=== PATIENT | female | born 1990 | race Caucasian/White ===

== ENCOUNTER 2017-06-01 18:41 | Emergency (ER) | payer SELFPAY ==
[2017-06-01] MEDS ORDERED: ONDANSETRON HCL/PF 2 MG/ML VIAL IV ONE (19:32)
[2017-06-01] MEDS ORDERED: NORMAL SALINE 1,000 ML IV ONE ×2 (19:32→20:19)
--- NOTE | 2017-06-01 19:33 | ERNOTE ---
<Freddy Rodriguez - Last Filed: 06/01/17 19:43> Headache ER HPI - Narrative Date of Service: 06/01/17 - General Time Seen by Provider: 06/01/17 19:22 Source: patient Exam Limitations: no limitations - Immun/Allergies/Home Medications Immunizations: IMMUNIZATION HX Immunizations Up to Date Yes History of Influenza Vaccine No Hx Pneumococcal Vaccination No Allergies/Adverse Reactions: Allergies tramadol Allergy (Intermediate, Verified 06/22/15 19:34) Other Causes Seizures with keppra Home Medications: HOME MEDICATIONS Ibuprofen [Motrin] 800 mg PO Q6H PRN #0 tablet 09/06/16 [Last Taken Unknown] levETIRAcetam [Keppra] 500 mg PO BID 06/01/17 [Last Taken Unknown] - History of Present Illness Narrative: 26-year-old white female presents due to feelings of malaise and exhaustion. Patient states she works 2 jobs that have been quite difficult recently. Today she worked at [employer] and she states a temperature where she works was 105. She feels like she may have gotten overheated. She has feelings of nausea and generalized malaise. She is scheduled to work [employer] at her second job. She denies . Review of Systems - Review of Systems Constitutional: Present: See HPI, diaphoresis, fatigue, malaise. Absent: fever , chills, weight loss EYE: Present: no symptoms reported ENT: Present: no symptoms reported Respiratory: Present: no symptoms reported Cardiology: Present: no symptoms reported Gastrointestinal/Abdominal: Present: nausea. Absent: vomiting, diarrhea, abdominal pain, eating less, drinking less Genitourinary: Present: no symptoms reported Neurological: Present: headache, other Hematologic/Lymphatic: Present: no symptoms reported All Other Systems: All systems neg except as marked - Patient's Past Medical History Patient History - Medical: Anxiety, Depression, Seizures Patient History - Cardiac/Respiratory: Asthma Patient History - Cancer: No Hx of Cancer Patient History - Surgical Procedures: Other Patient History - Other: None LMP (females 10-50): last week - Social History Living Situations: home Psych History: Hx of Anxiety, Hx of Depression Smoking Status: Current some day smoker Patient requests Smoking Cessation Consult: No Initiate information on Smoking Cessation: No Alcohol Use: heavy Drug Use: none - Immunizations Immunizations Up to Date: Yes Hx Pneumococcal Vaccination: No History of Influenza Vaccine: No Physical Exam - Physical Exam General Appearance: Present: wd/wn, alert, no apparent distress Head Exam: Present: normal inspection, no evidence of injury Eye Exam: Normal inspection: bilateral Ears, Nose, Throat: Present: normal ENT inspection Neck: Present: normal inspection Respiratory: Present: no respiratory distress, normal breath sounds, no accessory muscle use, chest nontender, lungs clear Cardiovascular/Chest: Present: regular rate, rhythm, no murmur, normal peripheral pulses Gastrointestinal/Abdominal: Present: normal bowel sounds, nontender, nondistended, soft Extremity Exam: Present: normal inspection Neurological Exam: Present: alert, oriented, no motor/sensory deficits Skin Exam: Present: normal color, warm/dry ED Progress - Vital Signs Patient's Vital Signs:: I have reviewed the patient's vital signs. Vital Signs: Vital Signs 06/01/17 06/01/17 18:53 19:10 Temperature 36.1 C L 37.1 C Pulse Rate 88 84 Respiratory 16 Rate Blood Pressure 123/86 115/66 O2 Sat by Pulse 100 100 Oximetry - Progress/Reassessment Chief Complaint: Headache Progress:: Unchanged Plan - Plan Plan: I have ordered labs, IV fluids and Zofran for patient. Her care will be transferred at shift change to the oncoming physician . I anticipate she will improve and be appropriate for discharge. Departure Clinical Impression: Headache Qualifiers: Headache type: unspecified Headache chronicity pattern: acute headache Intractability: not intractable Qualified Code(s): R51 - Headache Heat stress disorder Qualifiers: Encounter type: initial encounter Qualified Code(s): T67.8XXA - Other effects of heat and light, initial encounter - Departure Disposition: Home self-care Condition: Stable Instructions: Heat Exhaustion Information Additional Instructions: As we discussed, it is important that you remain adequately hydrated. Drink at least 6 cups (8 ounces) of water each day. Take frequent breaks in the heat. She should continue to feel better. Re-hydrating U will typically take care of the headaches like you are having. He feels better now but it is important to continue drinking fluids throughout the evening. For mild to moderate pain you can use Motrin or Naprosyn. When your insurance kicks in talking her family doctor about getting a referral to physical therapy. I do not believe you are candidate for cement in your spine due to her age and lack of hard neurological findings. Only her family doctor and consultation with a back specialist can make this definitive decision however. Return for new or worrisome symptoms <Pipe Rosenthal - Last Filed: 06/01/17 21:01> Headache ER HPI - Immun/Allergies/Home Medications Immunizations: IMMUNIZATION HX Immunizations Up to Date Yes History of Influenza Vaccine No Hx Pneumococcal Vaccination No ED Progress - Results and Orders Patient's Lab Results:: I have reviewed the patient's lab results. - Vital Signs Vital Signs: Vital Signs 06/01/17 06/01/17 06/01/17 18:53 19:10 19:49 Temperature 36.1 C L 37.1 C Pulse Rate 88 84 84 Respiratory 16 Rate Blood Pressure 123/86 115/66 121/61 O2 Sat by Pulse 100 100 98 Oximetry - Progress/Reassessment Progress:: Improved - she says headache is better Progress Note-Subjective: 06/01/17 20:58 I've discussed with the patient her chronic back pain. She had a fracture in her thoracic spine 6 months ago after a seizure. She wants a referral to physical therapy. She does not have insurance for another 6 weeks. I explained that she can go to physical therapy but be given a referral was not going to have any bearing unless she does have insurance. I instructed her to use ibuprofen or Naprosyn to help with inflammation and pain, and do physical therapy. Patient is received 1 L of normal saline. She says that she feels much better. - Transfer of Care Receiving Physician: Pipe Rosenthal Expected Disposition: Discharge Additional Notes: I received the patient in transfer from during the day. Pending the labs and resolution of headache
[2017-06-01 19:37] LABS: Urine Appearance Clear; Urine Bilirubin Negative (NEGATIVE); Urine Blood Negative /ul (NEGATIVE); Urine Color Dark Yellow; Urine Ketone 5 mg/dL (NEGATIVE); Urine Nitrite Negative (NEGATIVE); Urine Protein Negative (NEGATIVE); Urine Specific Gravity 1.015 SP.GR. (1.005-1.010); Urine Urobilinogen Normal (NORMAL); Urine pH 6.5 pH (5.0-7.0)
[2017-06-01 19:38] LABS: Urine Bacteria None Seen; Urine RBC None Seen /hpf (0-5); Urine WBC 0-5 /hpf (0-5)
[2017-06-01 19:45] LABS: Hematocrit 36.8 % (37.0-47.0); Hemoglobin 12.3 gm/dL (12.5-16.0); Mean Cell Volume 90.2 fl (78-100); Mean Corpuscular Hemoglobin 30.1 pg (27-31); Mean Corpuscular Hgb Conc 33.4 g/dl (32-36); Mean Platelet Volume 10.9 fl (6.0-9.5); Neutrophil % 55.2 % (42-75.0); Platelet Count 224 K/mm3 (150-450); Red Blood Count 4.08 M/mm3 (4.2-5.4); White Blood Count 5.4 K/mm3 (4.0-10.5)
[2017-06-01] MEDS ORDERED: ONDANSETRON HCL/PF 2 MG/ML VIAL ONE (19:53)
[2017-06-01 19:57] LABS: Albumin * 3.6 gm/dl (3.4-5.0); Anion Gap 12.8 mmol/L (6.8-13.8); Bilirubin, Total 0.5 mg/dL (0.0-1.1); Ca. Corrected For Albumin 8.5 mg/dL (8.4-10.2); Calcium * 8.5 mg/dL (7.9-10.9); Carbon Dioxide 26.8 mmol/L (24-32.6); Potassium 3.6 mmol/L (3.4-4.6); Total Protein 6.5 gm/dL (6.2-8.2)
[2017-06-01] MEDS ORDERED: ACETAMINOPHEN 500 MG TABLET PO ONE (20:18)
[2017-06-01 21:11] VITALS: BP 116/73
== END 2017-06-01 21:16 | disposition home or self-care (01) ==
LOC: ER 18:41
DX: R51 Headache (principal); T67.8XXA Other effects of heat and light, initial encounter
CPT/HCPCS: 36415; 80053; 81001; 82550; 84703; 85025; 96374; 99284; J2405

== ENCOUNTER 2019-03-06 07:13 | Inpatient (IN) ==
[2019-03-06] MEDS ORDERED: PENICILLIN G POTASSIUM 5 MILLIONUNT in DEXTROSE 5 % IN WATER 100 ML IV ONE ×2 (07:27)
[2019-03-06 07:43] LABS: Hematocrit 38.5 % (37.0-47.0); Hemoglobin 12.8 gm/dL (12.5-16.0); Mean Cell Volume 90.6 fl (78-100); Mean Corpuscular Hemoglobin 30.1 pg (27-31); Mean Corpuscular Hgb Conc 33.2 g/dl (32-36); Neutrophil # 9.7 K/mm3 (1.3-6.0); Neutrophil % 76.5 % (42-75.0); Platelet Count 313 K/mm3 (150-450); Red Blood Count 4.25 M/mm3 (4.2-5.4); Red Cell Distribution Width 13.3 % (11.5-14.0); White Blood Count 12.7 K/mm3 (4.0-10.5)
[2019-03-06] MEDS ORDERED: OXYTOCIN 20 UNITS in RINGER'S SOLUTION,LACTATED 1,000 ML IV ONE (07:48)
[2019-03-06] MEDS ORDERED: ceFAZolin SODIUM/DEXTROSE,ISO 2 GM/50 ML BAG IV ONE (07:48)
[2019-03-06] MEDS ORDERED: RINGER'S SOLUTION,LACTATED 1,000 ML IV PRN ×3 (07:48→08:56)
[2019-03-06 07:54] LABS: Albumin * 2.9 gm/dl (3.4-5.0); Anion Gap 16.1 mmol/L (6.8-13.8); BUN/Creatinine Ratio 8.3 (9.0-21.6); Bilirubin, Total 1.3 mg/dL (0.0-1.1); Ca. Corrected For Albumin 9.7 mg/dL (8.4-10.2); Calcium * 9.1 mg/dL (7.9-10.9); Carbon Dioxide 22.8 mmol/L (24-32.6); Potassium 3.9 mmol/L (3.4-4.6); Total Protein 7.1 gm/dL (6.2-8.2)
--- NOTE | 2019-03-06 07:58 | HP ---
Chief Complaint - Chief Complaint Date of Service: 03/06/19 Time of Service: 07:50 Chief Complaint: Labor History of Present Illness: Pt reports regular ctx. Denies LOF or VB. Fetus is active. Medical History (Updated 03/06/19 @ 07:54 by Gudelia Puga MD) Bipolar disorder Bipolar disorder Surgical History: Surgical History (Updated 03/06/19 @ 07:54 by Gudelia Puga MD) History of eye surgery Social History: Preferred Language Bermudian Smoking Status Former smoker Psych History Hx of Anxiety,Hx of Depression No Social History Section defined Review Of Systems (GEN) - Review of Systems Misc: All systems neg except as marked Immunizations: IMMUNIZATION HX Immunizations Up to Date Yes History of Influenza Vaccine No Hx Pneumococcal Vaccination No Allergies/Adverse Reactions: Allergies Allergy/AdvReac Type Severity Reaction Status Date / Time tramadol Allergy Intermediate Other Verified 06/22/15 19:34 Home Medications: HOME MEDICATIONS Ibuprofen [Motrin] 800 mg PO Q6H PRN #0 tablet 09/06/16 [Last Taken Unknown] levETIRAcetam [Keppra] 500 mg PO BID 06/01/17 [Last Taken Unknown] Exam - Exam Vital Signs: 36.1 C 97 20 127/75 100% RA Constitutional: Present: Alert, Oriented x3, Cooperative, No distress Respiratory: Present: lungs clear, normal breath sounds Cardiovascular/Chest: Present: regular rate, rhythm, no murmur Abdomen: Present: soft, nontender, nondistended Extremity: Present: non-tender, no calf tenderness Skin Exam: Present: normal color, warm/dry, no cyanosis Appearance: Present: appropriate appearance Eye contact: Present: cooperative Thoughts: Present: normal thought pattern Diagnostic Studies: Abnormal Lab Results 03/06/19 Range/Units 07:30 WBC 12.7 H (4.0-10.5) K/mm3 Immature Gran % (Auto) 0.50 H (0.001-0.429) % Immature Gran # (Auto) 0.06 H (0.000-0.0310) K/mm3 Neutrophils % 76.5 H (42-75.0) % Lymphocytes % 17.9 L (20-51) % Neutrophils # 9.7 H (1.3-6.0) K/mm3 Laboratory Results WBC 12.7 K/mm3 (4.0-10.5) H 03/06/19 07:30 RBC 4.25 M/mm3 (4.2-5.4) 03/06/19 07:30 Hgb 12.8 gm/dL (12.5-16.0) 03/06/19 07:30 Hct 38.5 % (37.0-47.0) 03/06/19 07:30 MCV 90.6 fl (78-100) 03/06/19 07:30 MCH 30.1 pg (27-31) 03/06/19 07:30 MCHC 33.2 g/dl (32-36) 03/06/19 07:30 RDW 13.3 % (11.5-14.0) 03/06/19 07:30 Plt Count 313 K/mm3 (150-450) 03/06/19 07:30 MPV 10.0 fl (8-12.5) 03/06/19 07:30 Immature Gran % (Auto) 0.50 % (0.001-0.429) H 03/06/19 07:30 Immature Gran # (Auto) 0.06 K/mm3 (0.000-0.0310) H 03/06/19 07:30 76.5 % (42-75.0) H 03/06/19 07:30 17.9 % (20-51) L 03/06/19 07:30 4.4 % (0.0-9) 03/06/19 07:30 0.4 % (0.0-3.0) 03/06/19 07:30 0.3 % (0.0-1.0) 03/06/19 07:30 Nucleated RBC % 0.0 k/mm3 (0-1) 03/06/19 07:30 9.7 K/mm3 (1.3-6.0) H 03/06/19 07:30 2.27 k/mm3 (1.5-3.5) 03/06/19 07:30 0.6 k/mm3 (0.0-1.0) 03/06/19 07:30 0.1 k/mm3 (0.0-0.7) 03/06/19 07:30 Absolute Basophils 0.0 k/mm3 (0.0-0.1) 03/06/19 07:30 Assessment/Plan - Narrative Narrative: The patient is a @ 36w5d by FL who presents with no care in labor and in breech presentation. PNL ordered. Ancef two grams preop for prophylaxis. All risks, benefits, and alternatives of the procedure were explained to the patient and the patient consented to the procedure. Pt admits to marijuana use 2 days ago. Check UDS.
--- NOTE | 2019-03-06 08:25 | ANES ---
Anesthesia Pre Procedure Eval HOME MEDICATIONS Ibuprofen [Motrin] 800 mg PO Q6H PRN #0 tablet 09/06/16 [Last Taken Unknown] levETIRAcetam [Keppra] 500 mg PO BID 06/01/17 [Last Taken Unknown] Allergies/Adverse Reactions: Allergies Allergy/AdvReac Type Severity Reaction Status Date / Time tramadol Allergy Intermediate Other Verified 06/22/15 19:34 - Planned Procedure Planned Procedure: C/S Medication List Reviewed:: Yes Allergies Verified: Yes Medical History (Updated 03/06/19 @ 07:58 by Gudelia Puga MD) Bipolar disorder Bipolar disorder Surgical History (Updated 03/06/19 @ 07:54 by Gudelia Puga MD) History of eye surgery - Family Anesthesia History Family History:: no untoward family reactions to anesthesia, no familial bleeding tendencies, no family history of clotting disorders, no family history of premature - Airway/Neck/Teeth Within Normal Limits:: Yes Teeth Condition: missing Mallampatti Score: 2 Thyromental (T-M) distance: > 6 cm Mandibulo Hyoid distance: > 3 cm - Respiratory Respiratory Physical: lungs clear Smoking Status: Current every day smoker Discussed smoking cessation including day of surgery: No Sleep Apnea currently treated: No Sleep Apnea by current assessment: No Discussed Risks/Treatment of GEOVANI: No - Cardiovascular Tolerate Activity: Good Heart Sounds: S1 & S2, Regular - Anesthesia Assessment and Plan ASA Class: PS, II, E Anesthesia Type Plan: Block - TAP blocks for postop analgesia, Spinal
[2019-03-06 08:31] LABS: Urine Bilirubin 1 mg/dl (NEGATIVE); Urine Blood 50 /ul (NEGATIVE); Urine Ketone Large mg/dL (NEGATIVE); Urine Protein Negative (NEGATIVE); Urine Urobilinogen Normal (NORMAL)
[2019-03-06 08:37] LABS: Urine Nitrite Positive (NEGATIVE)
[2019-03-06 08:38] LABS: Urine Appearance Slightly Cloudy (CLEAR); Urine Bacteria 1+; Urine Color Dark Yellow; Urine WBC None Seen /hpf (0-5)
[2019-03-06 08:46] LABS: Cocaine Ur Negative (NEGATIVE); Urine Barbiturate Negative (NEGATIVE); Urine Benzodiazepines Positive (NEGATIVE); Urine Opiates Negative (NEGATIVE); Urine PCP Negative (NEGATIVE); Urine THC Positive (NEGATIVE)
[2019-03-06] MEDS ORDERED: oxyCODONE HCL/ACETAMINOPHEN 1 TAB TABLET PO PRN ×2 (08:56→11:43)
[2019-03-06] MEDS ORDERED: IBUPROFEN 800 MG TABLET PO PRN (08:56)
[2019-03-06] MEDS ORDERED: MORPHINE SULFATE 2 MG/ML DISP.SYRIN IV PRN (08:56)
--- NOTE | 2019-03-06 09:13 | OR ---
Operative Report - Dictated Report Narrative: Date of delivery: 03/06/2019 Time of delivery: 825 Gender: male APGARS: 4/7 weight: not obtained Procedure: primary delivery due to breech presentation and labor Surgeon: Dr. Puga Anesthesia: spinal followed by induction of general anesthesia Description of the procedure: The patient was taken to the operating room where spinal anesthesia was induced without difficulty. She was then prepped and draped in the supine position in the standard surgical fashion. A Pfannestiel skin incision was made. The incision was carried through the subcutaneous tissue. The fascia was incised in the midline. The fascial incision was extended laterally. The fascia was dissected from the underlying rectus muscles. The rectus muscles were in the midline. The peritoneum was entered bluntly. An extra large Preston was placed. At this point the patient reported severe pain and thus she was placed under general anesthesia prior to delivery of the fetus. Once the patient was under general anesthesia, the uterus was incised in a lower transverse fashion. A complete breech was noted. The membranes were ruptured. A minimal amount of fluid was noted along with thick meconium. The baby was delivered with the usual breech manuevers. The cord was immediately clamped and cut and the infant was handed off to the attending pediatric staff. The placenta was delivered by expression. The membranes appeared grossly infected. The uterus was cleared of all clots and debris. The uterine incision was closed with a locking 0-vicryl suture. Two additional sutures were placed in the corners of the incision for additional hemostasis. The uterine incision was reinspected and found to be hemostatic. The Preston retractor was removed from the abdomen. The uterine incision was again inspected and found to be hemostatic. The rectus muscles and the fascia were inspected and found to be hemostatic. The fascia was closed with 1-0 vicryl in running fashion. The subcutaneous tissue was irrigated and hemostasis was obtained. The skin was closed with 3-0 monocryl on a Jose Alfredo needle. Dermabond was placed over the skin incision. All sponge, lap, and needle counts were correct. The patient tolerated the procedure well. She was transferred to the recovery r o in stable condition. EBL: 400 mL Complications: none Specimen: placenta
--- NOTE | 2019-03-06 09:37 | ANES ---
Post Anesthesia Discharge - Transfer of Care Transfer of Care handoff given to nurse: Yes - Discharge from PACU Discharge from PACU when meets criteria: Yes - Discharge to ASU Discharge to ASU-no complications/pt stable: Yes
--- NOTE | 2019-03-06 09:39 | ANES ---
Anesthesia Procedure Note Procedure Note: ANESTHESIA PROCEDURE NOTE Date of Procedure: 03/06/2019. Time of procedure: 934. Performed by: Kirk Dinero CRNA Plant Control Aide: None. Preprocedure diagnosis: Emergency . Post procedure diagnosis: Same. Procedure: Bilateral ultrasound-guided transversus abdominis plane block for postop analgesia. Indications: The patient is a 28 -year-old female post section. Findings: See below. Details of the procedure: ChloraPrep was used on the patient's abdomen and the procedure was performed under sterile technique. The right abdominal fascial layer between the internal oblique muscle and the transversus abdominis muscles was identified under ultrasound guidance. A 21-gauge 4 inch block needle was inserted under ultrasound guidance to the target fascial plane. 15 mL's of 0.5% bupivacaine plus epinephrine 1:200,000 was injected after negative aspiration for blood. The needle was removed intact and the procedure was then repeated at the left side. No complications were noted. The images were retained in the hospital medical database . EBL: Minimal. Fluids: N/A. Specimen: N/A. Post procedure condition: The patient tolerated the procedure well. No complications were noted. Thank you for this consultation. Kirk Dinero CRNA
--- NOTE | 2019-03-06 09:57 | ANES ---
Post Anesthesia Assessment - Vital Signs Vitals: Last Vital Signs Temp 36.0 C 03/06/19 09:50 Pulse 97 03/06/19 09:50 Resp 24 H 03/06/19 09:50 BP 124/77 03/06/19 09:50 Pulse Ox 100 03/06/19 09:50 Airway Patency: Normal - Mental Status Level Of Consciousness: Awake - Pain Level Pain Score: 0 - N/V Assessment Nausea/Vomiting Presence: None Dehydration:: No
[2019-03-06] MEDS ORDERED: KETOROLAC TROMETHAMINE 30 MG/ML VIAL IV PRN (10:24)
[2019-03-06] MEDS ORDERED: HYDROmorphone HCL 1 MG/ML DISP.SYRIN IV PRN (11:41)
[2019-03-06] MEDS: oxyCODONE HCL/ACETAMINOPHEN 1 TAB TABLET PO PRN ×2 (18:00→21:09)
[2019-03-06] MEDS: DOCUSATE SODIUM 100 MG CAPSULE PO SCH (21:06)
[2019-03-06] MEDS: IBUPROFEN 800 MG TABLET PO PRN (21:06)
[2019-03-07] MEDS: oxyCODONE HCL/ACETAMINOPHEN 1 TAB TABLET PO PRN ×2 (01:05→07:41)
[2019-03-07] MEDS ORDERED: RINGER'S SOLUTION,LACTATED 1,000 ML IV ONE (02:32)
[2019-03-07] MEDS: IBUPROFEN 800 MG TABLET PO PRN (07:41)
[2019-03-07] MEDS: DOCUSATE SODIUM 100 MG CAPSULE PO SCH ×2 (07:41→09:39)
--- NOTE | 2019-03-07 08:10 | PN ---
Subjective - Date and Time Seen Date: 03/07/19 Time: 08:08 Subjective Narrative: Pt without complaints Objective Objective Narrative: See vital signs - Review of Systems Generalized/Overall Review: Reports: No Symptoms Reported Misc: All systems neg except as marked - Vitals Vitals: Last Vital Signs Temp 36.7 C 03/06/19 23:17 Pulse 98 03/06/19 23:17 Resp 16 03/06/19 23:17 BP 102/75 03/06/19 23:17 Pulse Ox 98 03/06/19 23:17 - Abnormal Lab Findings Abnormal Lab Findings: Abnormal Lab Results 03/06/19 03/06/19 Range/Units 08:10 08:10 Urine Blood 50 H (NEGATIVE) /ul Urine Nitrate Positive H (NEGATIVE) Urine Bilirubin 1 H (NEGATIVE) mg/dl Urine RBC 5-10 H (0-5) /hpf Urine Bacteria 1+ H (NONE) Urine Amphetamine Positive H (NEGATIVE) U Benzodiazepines Scrn Positive H (NEGATIVE) Urine Marijuana (THC) Positive H (NEGATIVE) - Exam Constitutional: Present: Alert, Oriented x3, Cooperative, No distress Abdomen: Present: soft, nontender, nondistended - incision c/d/i Extremity: Present: non-tender, no calf tenderness Skin Exam: Present: normal color, warm/dry, no cyanosis Appearance: Present: appropriate appearance Eye contact: Present: cooperative Thoughts: Present: normal thought pattern Cauti Physician Documentation - Urinary Catheter Management Urethral (Mathis) Urethral Indwelling: No Date of Insertion: 03/06/19 Time of Insertion: 08:07 Date of Removal: 03/06/19 Time of Removal: 20:35 Assessment/Plan Plan Narrative: POD 1 s/p primary delivery for breech presentation Doing well Discharge home as the patient is doing well and her baby is admitted to the NICU in [place]
[2019-03-07 09:40] VITALS: BP 121/81
== END 2019-03-07 12:30 | disposition home or self-care (01) | DRG 786 ==
LOC: OBCLINIC 07:13 → OB 07:21
PROVIDERS: ADMIT Obstetrics & Gynecology; ATTEND Obstetrics & Gynecology
CPT/HCPCS: 36415; 59025; 76815; 80053; 80307; 81001; 85025; 86850; 87086; 88307